=== PATIENT | female | born 1945 | race Caucasian/White ===

== ENCOUNTER 2022-03-16 11:17 | Emergency (ER) | payer MEDICARE, BC ==
[~2022-03-16] VITALS: Ht 172 cm; Wt 48.0 kg
--- NOTE | 2022-03-16 11:54 | ED Fall/Injury ---
General Chief Complaint: Back Problems Stated Complaint: FALL Nursing Triage Note: PT REPORTTS SHE ROLLED OUT OF HER BED LAST PM AND HIT HER LOWER BACK ON A MAGAZINE RACK. SHE GOT UP AND WENT BACK TO BED. Source: patient Exam Limitations: no limitations History of Present Illness Date Seen by Provider: Mar 16, 2022 Time Seen by Provider: 11:20 Initial Comments 76yoF that fell out of bed while sleeping last night. Has left lower back pain. Son brought her in because he is concerned with her living by herself if anything is injured. Denies any head injury, neck pain, chest pain, SOA, abd pain, n/v/d, weakness, numbness, or any other concerns. Allergies and Home Medications Allergies Coded Allergies: No Known Drug Allergies (Unverified , 03/16/22) Patient Home Medication List Home Medication List Reviewed: Yes Lidocaine (Lidocaine 5% Patch) 5 % Adh..patch, 1 EACH TP Q12H PRN for Neuropathic pain Prescribed by: NATASHA OWUSU on 03/16/22 1319 Review of Systems Review of Systems Constitutional: No fever Eyes: Denies Blurred Vision Ears, Nose, Mouth, Throat: no symptoms reported Respiratory: no symptoms reported Cardiovascular: no symptoms reported Gastrointestinal: no symptoms reported Genitourinary: no symptoms reported Musculoskeletal: see HPI Skin: no symptoms reported Psychiatric/Neurological: No Symptoms Reported All Other Systems Reviewed Negative Unless Noted: Yes Past Mevmzlf-Puwntb-Hgukuv Hx Patient Social History Tobacco Use?: No Use of E-Cig and/or Vaping dev: No Substance use?: No Alcohol Use?: No Pt feels they are or have been: No Immunizations Up To Date First/Initial COVID19 Vaccinat: 2020 Second COVID19 Vaccination Yakov: 2020 COVID19 Vaccine Senior Consumer Insights Consultant: MODERNA Past Medical History Surgeries: No Physical Exam Vital Signs Vital Signs - First Documented 03/16/22 11:30 Temp 36.2 Pulse 58 Resp 18 B/P (MAP) 165/95 (118) Pulse Ox 95 O2 Delivery Room Air Capillary Refill : Less Than 3 Seconds Height, Weight, BMI Height: '" Weight: lbs. oz. kg; 16.00 BMI Method: General Appearance: WD/WN, no apparent distress HEENT: PERRL/EOMI, normal ENT inspection, pharynx normal Neck: non-tender, full range of motion, supple, normal inspection Cardiovascular: regular rate, rhythm, no edema, no murmur Respiratory: chest non-tender, lungs clear, normal breath sounds, no respiratory distress, no accessory muscle use Gastrointestinal: normal bowel sounds, non tender, soft; No distended, No guarding, No rebound Back: normal inspection, no vertebral tenderness, other (paravertebral tenderness lumbar spine) Extremities: normal range of motion, non-tender, normal inspection, no pedal edema, no calf tenderness, normal capillary refill Neurologic/Psychiatric: no motor/sensory deficits, alert, normal mood/affect, oriented x 3 Skin: normal color, warm/dry Lymphatic: no adenopathy Gretta Coma Score Best Eye Response: (4) Open Spontaneously Best Verbal Response: (5) Oriented Best Motor Response: (6) Obeys Commands Progress/Results/Core Measures Results/Orders My Orders Orders - NATASHA OWUSU MD Ct Lumbar Spine Wo (03/16/22 11:57) Acetaminophen Tablet (Tylenol Tablet) (03/16/22 12:00) Medications Given in ED Current Medications Medications Dose Ordered Sig/Traci Route Start Time Stop Time Status Last Admin Dose Admin Acetaminophen 1,000 mg ONCE ONCE PO 03/16/22 12:00 03/16/22 12:01 DC 03/16/22 12:25 1,000 MG Vital Signs/I&O 03/16/22 03/16/22 11:30 13:28 Temp 36.2 36.5 Pulse 58 84 Resp 18 16 B/P (MAP) 165/95 (118) 144/62 Pulse Ox 95 100 O2 Delivery Room Air Room Air Blood Pressure Mean: 118 Progress Progress Note : Progress Note 76-year-old female with above history coming in after falling from the bed last night. ABCs were intact and vitals were stable on presentation. The patient ambulated here and is sitting up on arrival. Pain is well controlled. She has minimal pain on exam, no midline tenderness. Given Tylenol for her discomfort. CT lumbar spine with acute mild superior endplate fracture of T12 and L1 with some retropulsion 2 mm in L1. She has neuro intact. Images were sent to [facility], and I contacted the neurosurgeon, Dr. Montano. He recommended a TLSO to be worn only if in pain. This is nonoperative, and he recommends neurosurgery follow-up in a couple weeks. The patient does not want to be admitted to the hospital, and she is adamant that she can handle her ADLs. Diagnostic Imaging Diagonstic Imaging: CT (CT lumbar spine) Comments NAME: ANGELA ECHOLS [facility] REC#: [id number] PT STATUS: REG ER : 1945 PHYSICIAN: NATASHA OWUSU MD ADMIT DATE: 03/16/22/ER FS Draft Date of Exam:03/16/22 CT LUMBAR SPINE WO Procedure: CT lumbar spine without contrast. Technique: Multiple contiguous axial images were obtained through the lumbar spine without the use of intravenous contrast. Sagittal and coronal reformations were then performed. Auto Exposure Controls were utilized during the CT exam to meet ALARA standards for radiation dose reduction. Indication: Fall with low back pain. Comparison: None. Discussion: Acute appearing superior endplate fractures at T12 and L1. 2 mm retropulsion at L1. Advanced degenerative disc disease at L4-L5 and L5-S1. Moderate degenerative disc disease otherwise. Advanced facet arthropathy is noted. No other fracture. No abnormal subluxation. Levoscoliosis is noted. Impression: 1. Acute appearing mild superior endplate compression fractures at T12 and L1. The T12 fracture is incompletely viewed. 2 mm retropulsion at L1. Dictated on workstation # [id number] Dict: 03/16/22 1230 Trans: 03/16/22 1239 CV [id number] Interpreted by: JACKY SAINI MD Electronically signed by: Departure Impression Primary Impression: L1 vertebral fracture Qualified Codes: S32.018A - Other fracture of first lumbar vertebra, initial encounter for closed fracture Additional Impression: T12 vertebral fracture Qualified Codes: S22.088A - Other fracture of t11-T12 vertebra, initial encounter for closed fracture Disposition: 01 HOME, SELF-CARE Condition: Stable Departure-Patient Inst. Decision time for Depature: 13:30 Referrals: TRANG COBIAN MD (PCP) Primary Care Physician Patient Instructions: Vertebral Compression Fracture (DC) Add. Discharge Instructions: T12 and L1 do have very mild breaks in them. These will be nonoperative. You can take the prescription for the brace to any durable medical equipment facility to wear this if you are in pain. You do not need to wear this if you are comfortable. Follow-up with the neurosurgery spine clinic of your choice, the closest would be in [place]. Their number is [phone]. The safest medicine for you is Tylenol. Pain patches were sent to [facility] pharmacy as well (they are the only pharmacy open today). Put them where you hurt the most. Scripts Lidocaine (Lidocaine 5% Patch) 5 % Adh..patch 1 EACH TP Q12H PRN for Neuropathic pain MDD 2 for 14 Days, #28 PATCH 2 patches max for 12 hours, then 12 hours patch-free period. Prov: NATASHA OWUSU MD 03/16/22 NATASHA OWUSU MD Mar 16, 2022 11:54
[2022-03-16] MEDS ORDERED: ACETAMINOPHEN 500 MG TAB (TYLENOL) PO ONE (12:00)
--- NOTE | 2022-03-16 12:39 | Diagnostic Imaging Report ---
Procedure: CT lumbar spine without contrast. Technique: Multiple contiguous axial images were obtained through the lumbar spine without the use of intravenous contrast. Sagittal and coronal reformations were then performed. Auto Exposure Controls were utilized during the CT exam to meet ALARA standards for radiation dose reduction. Indication: Fall with low back pain. Comparison: None. Discussion: Acute appearing superior endplate fractures at T12 and L1. 2 mm retropulsion at L1. Advanced degenerative disc disease at L4-L5 and L5-S1. Moderate degenerative disc disease otherwise. Advanced facet arthropathy is noted. No other fracture. No abnormal subluxation. Levoscoliosis is noted. Impression: 1. Acute appearing mild superior endplate compression fractures at T12 and L1. The T12 fracture is incompletely viewed. 2 mm retropulsion at L1. Dictated by: Dictated on workstation # [id number]
[2022-03-16] MEDS ORDERED: LIDO700A45 TP (13:19)
[2022-03-16 13:28] VITALS: BP 144/62
== END 2022-03-16 13:29 | disposition home or self-care (01) ==
LOC: ER FS 11:20
DX: S32.010A Wedge compression fracture of first lumbar vertebra, initial encounter for closed fracture (principal); S22.080A Wedge compression fracture of T11-T12 vertebra, initial encounter for closed fracture; W06.XXXA Fall from bed, initial encounter
CPT/HCPCS: 72131